=== PATIENT | male | born 1975 | race American Indian/Alaskan Native ===

== ENCOUNTER 2022-01-25 11:52 | Emergency (ER) | payer SELFPAY | END 2022-01-25 15:50 | disposition home or self-care (01) | LOC: JD.ED 11:52 | DX: R20.2 Paresthesia of skin (principal); E78.00 Pure hypercholesterolemia, unspecified; I10 Essential (primary) hypertension; F17.210 Nicotine dependence, cigarettes, uncomplicated | CPT/HCPCS: 36415; 71045; 71045-26; 80053; 83735; 83880; 84484; 85025; 86140; 93005; 99284 ==